=== PATIENT | female | born 1945 | race Caucasian/White ===

== ENCOUNTER 2019-11-23 13:02 | Inpatient (IN) ==
--- NOTE | 2019-11-23 14:17 | Diag Imaging Result Doc PS360 ---
EXAM: CT HEAD W/O CONTRAST HISTORY: ams TECHNIQUE: CT head without contrast COMPARISON: 08/20/2014 FINDINGS: No parenchymal hemorrhage. No epidural or subdural hematoma. No subarachnoid hemorrhage. There are chronic microvascular ischemic changes. No mass identified on this noncontrasted exam. No hydrocephalus. No sinus opacification. IMPRESSION: 1.No hemorrhage 2.Mild chronic microvascular ischemic changes This exam was performed using automated exposure control, adjustment of mA or kV according to patient size, and/or use of iterative reconstruction technique. Electronically signed by Waldo Castillo 11/23/2019 2:15 PM
--- NOTE | 2019-11-23 14:22 | PROVIDER DOCUMENTATION ---
HPI-General Adult - General Chief Complaint: Altered Mental Status Stated Complaint: MULTIPLE FALLS Time Seen by Provider: 11/23/19 14:22 Source: patient, family Allergies/Adverse Reactions: Patient Allergies Allergy/AdvReac Type Severity Reaction Status Date / Time codeine [Codeine] Allergy Intermediate VOMITING Verified 07/30/12 10:27 Home Medications: Home Medication List Medication Instructions Recorded Confirmed Last Taken Type Alprazolam [Xanax] 0.5 mg PO PRN PRN 07/30/12 07/30/12 Unknown History Aspirin 325 mg PO DAILY 07/30/12 07/30/12 07/29/12 08:30 History Cetirizine HCl [Zyrtec] 10 mg PO HS 07/30/12 07/30/12 07/29/12 23:30 History Clonidine [Catapres] 0.3 mg PO DIRECTED 07/30/12 07/30/12 07/30/12 05:30 History Duloxetine [Cymbalta] 60 mg PO DAILY 07/30/12 07/30/12 07/29/12 08:30 History Hydrocodone/Acetaminophen [Lortab 1 each PO Q4-6H PRN PRN 07/30/12 07/30/12 07/29/12 15:00 History 7.5-500 Tablet] Labetalol [Trandate] 100 mg PO BID 07/30/12 07/30/12 07/29/12 23:30 History Lacosamide [Vimpat] 100 mg PO BID 07/30/12 07/30/12 07/29/12 23:30 History Losartan [Cozaar] 100 mg PO DAILY 07/30/12 07/30/12 07/29/12 08:30 History Ondansetron Odt [Zofran 4 mg Odt] 4 mg PO Q6H PRN PRN #12 tablet 07/30/12 Unknown Rx Oxycodone HCl/Acetaminophen 1 each PO Q6H PRN PRN #10 tablet 07/30/12 Unknown Rx [Percocet 5-325 mg Tablet] Pramipexole Di-HCl [Mirapex] 0.125 mg PO HS 07/30/12 07/30/12 07/29/12 23:30 H istory Temazepam [Restoril] 30 mg PO QHS 07/30/12 07/30/1212 23:30 History Tramadol [Ultram] 50 mg PO Q6H PRN PRN 07/30/12 07/30/12 Unknown History - History of Present Illness -Gen Adult Nature of Presenting Problems: This is a 74yo female who presents with family with CC of altered mental status and recurrent falls. Pain: knee and hip Provocation/Palliation: none reported Quality: altered mentation with speech changes and weakness Locations/Radiation: none Symptoms: no fevers, no shortness of breath, no other pain. Onset/Timing: symptoms started 2 days ago, and have been progressive Hx/Social: Pt has hx of CIDP as well as cerebral aneurysm. No hx MT or CVA. Review of Systems - Adult - REVIEW OF SYSTEMS - ADULT ROS:: ROS per family Constitutional: reports: no symptoms reported. denies: fever Eyes: reports: no symptoms reported. denies: eye pain Ears, Nose, Mouth & Throat: reports: no symptoms reported. denies: throat pain Cardiovascular: reports: no symptoms reported. denies: chest pain Respiratory: reports: no symptoms reported. denies: shortness of breath Gastrointestinal: reports: no symptoms reported. denies: abdominal pain Genitourinary: reports: no symptoms reported. denies: flank pain Musculoskeletal: reports: joint pain Integumentary: reports: no symptoms reported Neurological: reports: ataxia, loss of balance, numbness, slurred speech (speach changes). denies: headache/migraines Psychiatric: reports: alcohol/drug dependence Endocrine: reports: no symptoms reported Hematologic/Lymphatic: reports: no symptoms reported Allergic/Immunologic: reports: no symptoms reported Past History - Adult - PAST MEDICAL HISTORY-ADULT Review of Records: reports: Old Records Reviewed, Nursing Assessment Review, Medications Reviewed Cardiovascular: reports: other (HTN) Respiratory: reports: denies history Gastrointestinal: reports: denies history Genitourinary: reports: other (CKD) Musculoskeletal: reports: chronic pain, intervertebral disc disease Neurological: reports: other (anursym and CIDP). denies: CVA Endocrine/Immune: denies: Diabetes - SOCIAL HISTORY Smoking: cigarettes Substance Use: none/never Alcohol Use Frequency: sober (former use) Physical Exam-General - CONSTITUTIONAL General Appearance: no apparent distress, lethargic, slow to respond - EYES Eyes: PERRL/EOMI. negative: conjuctival exudate, photophobia, scleral icterus - HEAD, EARS, NOSE, MOUTH & THROAT HENMT: normocephalic/atraumatic, pharynx normal - NECK Neck: supple. negative: non-tender, lymphadenopathy, meningismus - RESPIRATORY Respiratory: normal breath sounds, no respiratory distress - CARDIOVASCULAR Cardiovascular: regular rate, rhythm. negative: no edema (trace LE edema) - GASTROINTESTINAL (ABDOMEN) Abdominal Exam: non tender, soft - MUSCULOSKELETAL Extremity: non-tender, pelvis stable (mild right hip tenderness), erythema (left knee). negative: deformity - SKIN Integumentary: warm/dry. 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 negative: abnormal cerebellar tests, aphasia, EOM palsy, facial droop, motor weakness - PSYCHIATRIC Psych/Mental Status: oriented x 3, other (blunted and lethargic affect) Progress - PLAN OF CARE/RESULTS Progress/Plan/Lab Results: Laboratory Results - last 24 hr 11/23/19 13:58 POC Glucose 57 L Orders Category Date Time Status CT HEAD W/O CONTRAST [CT] Stat Exams 11/23/19 13:26 Completed Result Diagrams: 11/23/19 14:18 11/23/19 14:18 - REASSESSMENT Reassessment #1 Status: other (Pt still altered after correction of glucose. The patient vital signs have remained stable. Given hx of weakness and speach changes, pt may have had a stroke, however we have also noted likely UTI on UA. Given persistent AMS will plan for admission for further work up. This was discussed with the hosptalist team who has accepted the patient.) - EKG 1 Time of EKG reading by physician:: 14:25 EKG Read and Signed by:: Michael Turcios EKG Interpretation (*Must complete 3 of following elements*): Abnormal Rate: 64 Rhythm: sinus [place]: left QRS: normal SD Interval: normal ST Wave: non-specific ST changes Prior EKG Comparison: unchanged from prior (no significant changes noted) Comments: - XRAY 1 XRAY Study: Chest Impression: See EMR Report (Patient: LULÚ ELLIS KADM Date: 11/23/19#: [id number] : 1945DM [id number] Age/Sex: 74/FRoom/Bed: Loc: ED Ordering Physician: Michael Turcios MD Family Physician: Baylee Ellis MD Reason for Procedure: AMS Signed EXAM: CHEST-PORTABLE HISTORY: AMS TECHNIQUE: Single view COMPARISON: 02/08/2012 FINDINGS: The lungs are well expanded. The heart is not enlarged. The vessels are not distended. There are no infiltrates. No effusion identified. There is a left-sided portacatheter. No pneumothorax. IMPRESSION: Negative exam. Electronically signed by Waldo Castillo 11/23/2019 2:59 PM 11/23/19 1457 Interpreting Physician: Waldo Castillo MD Dictated Date/Time: 11/23/19 1456 cc: Michael Turcios MD; Baylee Ellis MD) 2 XRAY: Left XRAY Study: Knee Impression: See EMR Report ( Patient: LULÚ ELLIS Date: 11/23/19MR#: [id number] : 1945DM Status: REG [facility]#: [id number] Age/Sex: 74/FRoom/Bed: Loc: ED Ordering Physician: Michael Turcios MD Family Physician: Baylee Ellis MD Reason for Procedure: Fall ___ Signed EXAM: KNEE 3 VIEWS LEFT HISTORY: Fall TECHNIQUE: Three views COMPARISON: None. FINDINGS: No fracture. No dislocation. IMPRESSION: No acute bony injury. Electronically signed by Waldo Castillo 11/23/2019 3:04 PM 11/23/19 1504 Interpreting Physician: Waldo Castillo MD Dictated Date/Time: 11/23/19 1504 cc: Michael Turcios MD; Baylee Ellis MD) 3 XRAY: Bilateral XRAY Study: Pelvis, Hip Impression: See EMR Report (Patient: LULÚ ELLIS Date: 11/23/19MR#: [id number] : 1945DM Status: REG ERAcct#: [id number] Age/Sex: 74/FRoom/Bed: Loc: ED Ordering Physician: Michael Turcios MD Family Physician: Baylee Ellis MD Reason for Procedure: Fall Signed EXAM: HIP W/PELVIS BILAT 2 VIEWS HISTORY: Fall TECHNIQUE: Two views COMPARISON: 07/17/2011 FINDINGS: No fracture. No dislocation. IMPRESSION: No acute bony injury. Electronically signed by Waldo Castillo 11/23/2019 3:08 PM 11/23/19 1508 Interpreting Physician: Waldo Castillo MD Dictated Date/Time: 11/23/19 1507 cc: Michael Turcios MD; Baylee Ellis MD) - CT/MRI 1 CT Study: Head Impression: See EMR Report (Patient: LULÚ ELLIS Date: 11/23/19MR#: [id number] : 1945DM Status: REG ERAcct#: [id number] Age/Sex: 74/FRoom/Bed: Loc: ED Ordering Physician: Cortez Westbrook MD Family Physician: Baylee Ellis MD Reason for Procedure: ams Signed EXAM: CT HEAD W/O CONTRAST HISTORY: ams TECHNIQUE: CT head without contrast COMPARISON: 08/20/2014 FINDINGS: No parenchymal hemorrhage. No epidural or subdural hematoma. No subarachnoid hemorrhage. There are chronic microvascular ischemic changes. No mass identified on this noncontrasted exam. No hydrocephalus. No sinus opacification. IMPRESSION: 1.No hemorrhage 2.Mild chronic microvascular ischemic changes This exam was performed using automated exposure control, adjustment of mA or kV according to patient size, and/or use of iterative reconstruction technique. Electronically signed by Waldo Castillo 11/23/2019 2:15 PM 11/23/19 1415 Int erpreting Physician: Waldo Castillo MD Dictated Date/Time: 11/23/19 1414 cc: Cortez Westbrook MD; Baylee Ellis MD) Departure - Departure Date of Disposition Decision: 11/23/19 Time of Disposition Decision: 16:05 DIAGNOSIS: Recurrent falls Altered mental state Qualifiers: Altered mental status type: unspecified Qualified Code(s): R41.82 - Altered mental status, unspecified UTI (urinary tract infection) Qualifiers: Urinary tract infection type: site unspecified Hematuria presence: with hematuria Qualified Code(s): N39.0 - Urinary tract infection, site not specified; R31.9 - Hematuria, unspecified Disposition: ADMITTED INPATIENT 09 Certified Medical Emergency: Emergent Condition: Fair Referrals and Follow-Ups: Baylee Ellis MD [Primary Care Provider] - - Critical Care Note This patient required my direct & personal management of CC.: No Attestation - Physician/ LUPE Attestation Patient care was provided by Advanced Practice Provider:: No The physician spent face to face time with patient:: Yes Advanced Practice Provider documentation review:: Supervising physician onsite and consulted in the evaluation and care of this patient. The physician did have a face to face encounter with the patient.
[2019-11-23] MEDS ORDERED: D50W SYRINGE IV ONE (14:24)
[2019-11-23 14:48] LABS: BASO# 0.02 X1000 (0.0-0.2); BASO% 0.4 % (0.0-0.8); EOS# 0.13 X1000 (0.0-0.7); EOS% 2.6 % (0.0-10.0); HEMATOCRIT 36.2 % (37.0-47.0); HEMOGLOBIN 11.9 g/dL (12.0-16.0); LYMPH# 0.74 X1000 (1.2-3.4); LYMPH% 14.5 % (20.5-51.1); MCH 29.6 PG (27-31); MCHC 32.9 g/dL (33-37); MONO% 7.9 % (1.7-9.3); MPV 10.6 FL (7.4-10.4); NEUT% 74.6 % (42.2-75.2); PLT 190 X1000 (130-400); RBC 4.02 XMIL (4.2-5.4); RDW 14.3 % (11.5-14.5); WBC 5.09 X1000 (4.8-10.8)
[2019-11-23 14:52] LABS: INR 0.93; PROTIME 12.6 Seconds (11.0-16.0)
[2019-11-23 14:53] LABS: PTT 28.5 Seconds (22.3-41.8)
[2019-11-23 14:55] LABS: ALB/GLOB RATIO 1.1; ALBUMIN 3.5 g/dL (3.5-5.0); CALCIUM 9.2 mg/dL (8.8-10.2); CREATININE 1.4 mg/dL (0.5-0.9); TOTAL BILIRUBIN 0.3 mg/dL (0.20-1.00); TOTAL PROTEIN 6.7 g/dL (6.3-8.3)
--- NOTE | 2019-11-23 15:02 | Diag Imaging Result Doc PS360 ---
EXAM: CHEST-PORTABLE HISTORY: AMS TECHNIQUE: Single view COMPARISON: 02/08/2012 FINDINGS: The lungs are well expanded. The heart is not enlarged. The vessels are not distended. There are no infiltrates. No effusion identified. There is a left-sided portacatheter. No pneumothorax. IMPRESSION: Negative exam. Electronically signed by Waldo Castillo 11/23/2019 2:59 PM
--- NOTE | 2019-11-23 15:07 | Diag Imaging Result Doc PS360 ---
EXAM: KNEE 3 VIEWS LEFT HISTORY: Fall TECHNIQUE: Three views COMPARISON: None. FINDINGS: No fracture. No dislocation. IMPRESSION: No acute bony injury. Electronically signed by Waldo Castillo 11/23/2019 3:04 PM
--- NOTE | 2019-11-23 15:10 | Diag Imaging Result Doc PS360 ---
EXAM: HIP W/PELVIS BILAT 2 VIEWS HISTORY: Fall TECHNIQUE: Two views COMPARISON: 07/17/2011 FINDINGS: No fracture. No dislocation. IMPRESSION: No acute bony injury. Electronically signed by Waldo Castillo 11/23/2019 3:08 PM
[2019-11-23 15:15] LABS: ALLEN TEST NO; BE -3.6 mmoll (-3.0-3.0); BLOOD TYPE ARTERIAL; PCO2(98.6) 38 mmHg (35-45); PO2(98.6) 71 mmHg (60-100); SAMPLE BLOOD; pH(98.6) 7.36 (7.35-7.45)
[2019-11-23 15:17] LABS: MODALITY ROOM AIR
[2019-11-23 15:18] LABS: CK INDEX 1.7 (0.0-2.5); CK-MB 3.75 ng/mL (0.0-5.0)
[2019-11-23 15:42] LABS: URINE SOURCE CLEAN CATCH
[2019-11-23 15:44] LABS: BILIRUBIN URINE NEGATIVE (NEGATIVE); BLOOD URINE TRACE (NEGATIVE); COLOR YELLOW; GLUCOSE URINE NEGATIVE (NEGATIVE); KETONE URINE NEGATIVE (NEGATIVE); LEUKOCYTES URINE LARGE (NEGATIVE); NITRITE URINE POSITIVE (NEGATIVE); PH URINE 6.5; PROTEIN URINE TRACE mg/dL (NEGATIVE); SP GRAVITY URINE 1.008; TURBIDITY URINE HAZY (CLEAR); UROBILINOGEN URINE NORMAL (NORMAL)
[2019-11-23 15:56] LABS: UR EPITHELIAL CELLS <10 /HPF (<10); URINE BACTERIA 2+ /HPF; URINE RBC <10 /HPF (<10); URINE WBC TNTC /HPF (<10)
[2019-11-23] MEDS ORDERED: ROCEPHIN 1 GM in NS 50 ML IV ONE (16:07)
[2019-11-23 16:35] LABS: UR AMPHETAMINES QUAL PRESUMPTIVE POSITIVE (NONE DETECT); UR BARBITUATES QUAL NONE DETECTED (NONE DETECT); UR BENZODIAZEPIN QUAL NONE DETECTED (NONE DETECT); UR CANNABINOIDS QUAL NONE DETECTED (NONE DETECT); UR COCAINE QUAL NONE DETECTED (NONE DETECT); UR METHADONE QUAL NONE DETECTED (NONE DETECT); UR OPIATES QUAL NONE DETECTED (NONE DETECT); UR OXYCODONE QUAL NONE DETECTED (NONE DETECT); UR PCP QUAL NONE DETECTED (NONE DETECT)
[2019-11-23] MEDS ORDERED: ZOFRAN ODT PO PRN (18:16)
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
[2019-11-23] MEDS: MIRAPEX PO SCH (21:58)
[2019-11-23] MEDS: TRANDATE PO SCH (21:59)
[2019-11-23] MEDS: KLOR-CON PO SCH (21:59)
[2019-11-24] MEDS: CYMBALTA PO SCH (09:04)
[2019-11-24] MEDS: SEPTRA DS PO SCH ×2 (09:04→21:07)
[2019-11-24] MEDS: COZAAR PO SCH (09:05)
[2019-11-24] MEDS: TRANDATE PO SCH (09:05)
[2019-11-24] MEDS: KLOR-CON PO SCH ×2 (09:05→21:07)
[2019-11-24] MEDS ORDERED: ZEBETA PO ONE (10:06)
--- NOTE | 2019-11-24 14:10 | Diag Imaging Result Doc PS360 ---
EXAM: SHOULDER 1 VIEW LEFT 11/24/2019 HISTORY: fall TECHNIQUE: Left shoulder AP only COMMENT: There is no evidence of fracture or dislocation. IMPRESSION: No evidence of acute disease. Electronically signed by Angel Burleson 11/24/2019 2:07 PM
[2019-11-24] MEDS: MIRAPEX PO SCH (21:06)
--- NOTE | 2019-11-25 07:30 | EKG Report ---
Test Performed on : 11/23/2019 1:53:20 PM Test Reason : AMS Blood Pressure : / mmHG Vent. Rate : 064 BPM Atrial Rate : 064 BPM P-R Int : 170 ms QRS Dur : 102 ms QT Int : 492 ms P-R-T Axes : 046 -39 007 degrees QTc Int : 507 ms Normal sinus rhythm. Possible Left atrial enlargement Left axis deviation Nonspecific ST and T wave abnormality Abnormal ECG When compared with ECG of 30-JUL-2012 12:19, Borderline criteria for Anteroseptal infarct are no longer present Unconfirmed Result
--- NOTE | 2019-11-25 08:42 | PROGRESS NOTE ---
DATE: 11/25/2019 SUBJECTIVE: The patient was sitting in bed, eating breakfast, and seemed to be concentrating fairly heavily on that. She was a bit concerned that all of her home medications had not been continued thus far. I tried to explain to her that given her overall weakness, certain medications which may contribute to that were held, but she was insistent that she usually takes 16 pills every morning, and has less than 5 at present. OBJECTIVE: Vital Signs: Temperature 97.5, pulse 82, respirations 18, blood pressure 128/54, saturating 95% on room air. General: The patient is alert, oriented, conversive, and appropriate. She has not tried to stand yet this morning. Lungs: Clear. Cardiovascular: Regular. LABORATORY DATA: None were ordered this morning. ASSESSMENT AND PLAN: 1. The patient's overall weakness, I am sure is multifactorial. She has a urinary tract infection with cultures pending. Blood cultures show no growth at 48 hours. There is gram- negative debra in her urine. She is being treated with appropriate antibiotics, and we will focus those medications according to culture and sensitivity results. 2. The patient's chronic inflammatory demyelinating polyneuropathy is likely exacerbated by this metabolic problem concerning a urinary tract infection. We are going to continue with physical therapy, and continue most of her home medications in regard to that particular entity. 3. The patient's blood pressure is still relatively low with a wide pulse pressure and a low diastolic. I am going to continue to hold her bisoprolol, but she is back on losartan. 4. I have written for the patient's Klonopin, which she says she takes for "shaking." She was rather insistent on continuing this medication. 5. The patient also takes Imodium sporadically at home. She describes her problem as diarrhea that occurs as a result of her previous colon resection years ago. It sounds like she is in a rather difficult pattern of having diarrhea, then she takes 3 Imodium which completely stops her up, and then she waits it out until that wears off, and then she has diarrhea, and then again takes a handful of Imodium. There may be some medical management issues there that could be shored up. cc: MD Laomnte Ambrose MD
[2019-11-25] MEDS ORDERED: ZEBETA PO SCH (09:00)
[2019-11-25] MEDS: SEPTRA DS PO SCH ×2 (09:22→21:49)
[2019-11-25] MEDS: COZAAR PO SCH (09:23)
[2019-11-25] MEDS: KLOR-CON PO SCH ×2 (09:23→21:48)
[2019-11-25] MEDS: CYMBALTA PO SCH (09:23)
[2019-11-25] MEDS: KLONOPIN PO SCH ×2 (09:30→21:49)
[2019-11-25] MEDS: LAMICTAL PO SCH ×2 (09:30→21:49)
[2019-11-25] MEDS: WELLBUTRIN SR PO SCH ×2 (09:31→21:48)
[2019-11-25 21:12] LABS: BASO# 0.01 X1000 (0.0-0.2); BASO% 0.2 % (0.0-0.8); EOS# 0.17 X1000 (0.0-0.7); EOS% 3.8 % (0.0-10.0); HEMATOCRIT 35.1 % (37.0-47.0); HEMOGLOBIN 11.7 g/dL (12.0-16.0); LYMPH# 0.84 X1000 (1.2-3.4); LYMPH% 18.7 % (20.5-51.1); MCH 30.6 PG (27-31); MCHC 33.3 g/dL (33-37); MCV 91.9 FL (81-99); MONO# 0.49 X1000 (0.11-0.59); MONO% 10.9 % (1.7-9.3); MPV 11.2 FL (7.4-10.4); NEUT# 2.99 X1000 (1.4-6.5); NEUT% 66.4 % (42.2-75.2); PLT 208 X1000 (130-400); RBC 3.82 XMIL (4.2-5.4); RDW 14.9 % (11.5-14.5)
[2019-11-25 21:34] LABS: CALCIUM 9.2 mg/dL (8.8-10.2); CREATININE 1.8 mg/dL (0.5-0.9); POTASSIUM 4.1 mmol/L (3.5-5.1)
[2019-11-25] MEDS: MIRAPEX PO SCH (21:48)
[2019-11-25] MEDS: BENADRYL PO PRN (21:48)
--- NOTE | 2019-11-26 08:43 | PROGRESS NOTE ---
DATE: 11/26/2019 SUBJECTIVE: Mrs. Ellis was admitted to [facility] with a metabolic encephalopathy secondary to a urinary tract infection. Urine cultures grew out Citrobacter freundii. Clinically, she seems much better this morning. She is awake and easily arousable. She is oriented to name, place, and time. She answers questions appropriately. She has had no fever or chills. Blood cultures are negative. Blood pressure remains well controlled. Systolic blood pressures are ranging from 110 to 130, whereas her diastolic blood pressures have been in the 50s and 60s. She denies any chest pain, palpitations, or anginal equivalents. She has a history of chronic inflammatory demyelinating polyneuropathy. She last had IV IgG per Dr. Danielson 3 weeks ago. She continues with persistent weakness in the lower extremities. She does not feel that the most recent dosage of IV IgG has helped clinically. She was able to walk approximately 6 feet with the assistance of Physical Therapy. OBJECTIVE: Vital Signs: Temperature 98.3 degrees, pulse 74, respirations 14, BP 115/52. CV: Regular rate and rhythm. Lungs: Clear. Abdomen: Soft and nontender, with active bowel sounds. ASSESSMENT AND PLAN: 1. Metabolic encephalopathy secondary to urinary tract infection. The encephalopathy has largely resolved. I will transition her to oral Levaquin 250 mg daily dosed for her chronic renal failure. 2. Hypertension. Blood pressure is stable. We will continue losartan 100 mg daily. 3. Chronic inflammatory demyelinating polyneuropathy. She still has significant weakness in the lower extremities. We will continue physical therapy. I believe that she would benefit from short-term physical therapy. I do not believe that she is independent enough to safely return home. I will check a vitamin B12 and folic acid today. I will ask Dr. Escamilla to see her in consultation. I do not know if it would be worthwhile giving her anther treatment of intravenous IgG, or would she benefit from plasmapheresis or potentially high-dose steroids. cc: MD Lamonte Tierney MD
[2019-11-26] MEDS: COZAAR PO SCH (09:33)
[2019-11-26] MEDS: LAMICTAL PO SCH ×2 (09:33→20:39)
[2019-11-26] MEDS: WELLBUTRIN SR PO SCH ×2 (09:33→20:39)
[2019-11-26] MEDS: CYMBALTA PO SCH (09:33)
[2019-11-26] MEDS: KLONOPIN PO SCH ×2 (09:33→20:38)
[2019-11-26] MEDS: LEVAQUIN PO SCH (09:33)
[2019-11-26] MEDS: KLOR-CON PO SCH (09:35)
[2019-11-26] MEDS: ADDERALL XR PO SCH (10:44)
[2019-11-26 12:10] LABS: CALCIUM 8.8 mg/dL (8.8-10.2); CREATININE 1.8 mg/dL (0.5-0.9); POTASSIUM 4.5 mmol/L (3.5-5.1)
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
[2019-11-26] MEDS: MIRAPEX PO SCH (20:38)
[2019-11-26] MEDS: BENADRYL PO PRN (20:39)
[2019-11-27] MEDS: IMODIUM PO PRN ×2 (07:32→16:47)
--- NOTE | 2019-11-27 08:19 | PROGRESS NOTE ---
DATE: 11/27/2019 SUBJECTIVE: Mrs. Ellis is alert and easily arousable. She is oriented to name, place, and time. She answers questions appropriately. Blood pressure remains well controlled. This morning, her blood pressure was 127/68. She denies any chest pain, palpitations, or anginal equivalents. She does have a history of chronic inflammatory demyelinating polyneuropathy. She last had IVIGG several weeks ago. She has had several falls. Strength in her leg seems somewhat improved with physical therapy. She is no longer having dysuria or increased urinary frequency. Urine culture grew out Citrobacter freundii. OBJECTIVE: Vitals: Temperature 98.0 degrees, pulse 82, respirations 16, BP 127/68. CV: Regular rate and rhythm. Lungs: Clear. Abdomen: Soft, nontender, with active bowel sounds. No hepatosplenomegaly. No abdominal bruits. ASSESSMENT AND PLAN: 1. Metabolic encephalopathy secondary to urinary tract infection. She is back to her baseline neurologically. She has been transitioned to oral Levaquin. We will treat her with antibiotics for a total course of 2 weeks. 2. Chronic inflammatory demyelinating polyneuropathy. Dr. Escamilla did not feel that she would benefit from IVIGG at this time. We will continue physical therapy. We are awaiting short- term rehab bed to improve ambulation and stability prior to returning home. B12 and folic acid levels were normal. 3. Hypertension. Blood pressure is stable. We will continue both Ziac and losartan. cc: MD Lamonte Tierney MD
[2019-11-27] MEDS: CYMBALTA PO SCH (09:11)
[2019-11-27] MEDS: COZAAR PO SCH (09:11)
[2019-11-27] MEDS: WELLBUTRIN SR PO SCH ×2 (09:11→20:49)
[2019-11-27] MEDS: LEVAQUIN PO SCH (09:11)
[2019-11-27] MEDS: ADDERALL XR PO SCH (09:12)
[2019-11-27] MEDS: KLONOPIN PO SCH ×2 (09:12→20:49)
[2019-11-27] MEDS: LAMICTAL PO SCH ×2 (09:17→20:49)
[2019-11-27] MEDS: MIRAPEX PO SCH (20:48)
[2019-11-27] MEDS: BENADRYL PO PRN (20:55)
[2019-11-28 08:21] VITALS: BP 123/88
[2019-11-28] MEDS: COZAAR PO SCH (09:15)
[2019-11-28] MEDS: ADDERALL XR PO SCH (09:15)
[2019-11-28] MEDS: WELLBUTRIN SR PO SCH (09:16)
[2019-11-28] MEDS: CYMBALTA PO SCH (09:16)
[2019-11-28] MEDS: LAMICTAL PO SCH (09:16)
[2019-11-28] MEDS: LEVAQUIN PO SCH (09:16)
[2019-11-28] MEDS: KLONOPIN PO SCH (09:16)
--- NOTE | 2019-11-28 09:30 | DISCHARGE SUMMARY ---
ADMISSION DATE: 11/23/2019 DISCHARGE DATE: 11/28/2019 DISCHARGE DIAGNOSES: 1. Acute metabolic encephalopathy secondary to urinary tract infection. 2. Essential hypertension. 3. Depression. 4. Chronic renal insufficiency. 5. Lumbar spinal stenosis with neurogenic claudication. 6. Chronic inflammatory demyelinating polyneuropathy. 7. Recurrent falls. 8. Restless leg syndrome. DISCHARGE INSTRUCTIONS: 1. The patient will be transferred to [facility] in order to undergo short-term rehab. 2. Activity as tolerated. 3. Regular diet. MEDICATIONS: 1. Benadryl 25 mg at bedtime p.r.n. insomnia. 2. Imodium 4 mg every 4 hours as needed for diarrhea. 3. Levaquin 250 mg daily for 7 days. 4. Mirapex 0.125 mg at night. 5. Losartan 100 mg daily. 6. Zyrtec 10 mg daily. 7. Zebeta 5 mg b.i.d. 8. Vitamin B 12 injections monthly. 9. Hydrochlorothiazide 12.5 mg daily. 10. Vitamin D 1000 international units daily. 11. Adderall XR 10 mg daily. 12. Bupropion SR 150 mg b.i.d. 13. Clonazepam 1 mg b.i.d. 14. Duloxetine 60 mg daily. 15. Lamictal 100 mg b.i.d. PHYSICAL EXAMINATION: General: This is a well-developed, well-nourished, 74-year-old lady in no apparent distress. She is afebrile. Vital Signs: Pulse 93, respirations 18, BP 156/69. CV: Regular rate and rhythm. Lungs: Clear. Abdomen: Soft, nontender with active bowel sounds. Neurologic: She has decreased light touch in the distal extremities bilaterally. HOSPITAL COURSE: Ms. Singh Ellis was admitted to [facility] with altered mental status. Her initial CT scan of the brain demonstrated no hemorrhage and mild chronic microvascular changes. Urinalysis was wildly positive. Urine cultures grew out Citrobacter freundii. The patient was initially treated with Rocephin and was transitioned to oral Levaquin. Blood cultures were negative. With resolution of her urinary tract infection, the encephalopathy resolved. She was back to her baseline neurologically. She will complete an additional 7 day course of Levaquin as an outpatient. She does have a longstanding history of chronic inflammatory demyelinating polyneuropathy. She had several falls. B 12 and folic acid levels were normal. She had IV IgG 3 weeks ago. Physical therapy was consulted to see the patient. She made slow steady progress. We felt that she would benefit from short-term rehab. Arrangements were made to transfer her to [facility]. We continued the Cymbalta for neuropathic pain. She has chronic fatigue syndrome for which Dr. Danielson gives her Adderall. She does have history of hypertension. Blood pressure remains stable on a combination of Zebeta and losartan. Having reached maximum hospital benefit, the patient was discharged in stable condition. cc: MD Lamonte Tierney MD
== END 2019-11-28 13:37 | DRG 689 ==
LOC: SUPCPDRO → ED 13:02 → EDIPHOLD 17:42 → 1N 21:42
PROVIDERS: ADMIT Internal Medicine; ATTEND Internal Medicine